=== PATIENT | female | born 1990 | race Caucasian/White ===

== ENCOUNTER → 2018-10-25 13:44 | Outpatient (CLI) | payer OTHER, SELFPAY ==
--- NOTE | 2018-10-25 | DI.US.S_ITS ---
PROCEDURE: US PELVIC COMPLETE INDICATIONS: ENLARGED OVARY TECHNIQUE: Real-time scanning was performed of the pelvic organs, with image documentation. Additional endovaginal scanning was necessary due to incomplete visualization of the adnexal and endometrial structures by transabdominal scanning. COMPARISON: None. FINDINGS: Transabdominal scanning: Limited scanning through the kidneys shows no hydronephrosis. No pathologic free abdominal or pelvic fluid. Endovaginal scanning: Uterus: Uterus is normal in size at 7.0 x 3.1 x 4.3 cm. The endometrium measures 3.2 mm in combined thickness. Ovaries: Right ovary is enlarged measuring 4.7 x 3.1 x 3.3 cm and there is an associated complex, thick and irregular walled cystic mass measuring 2.1 x 1.9 x 1.8 cm. Left ovary is normal measuring 3.6 x 1.9 x 2.8 cm. IMPRESSION: 1. Thick walled, complex mass associated with the right ovary likely a hemorrhagic ovarian cyst; however endometrioma could have a similar appearance. Recommend followup ultrasound in 6-12 weeks to assess for temporal resolution. Dictated by: Cristofer EUGENE Interpreted: Ritika Saba MD on 10/25/2018 at 14:28 Approved by: Ritika Saba M.D. on 10/25/2018 at 14:54
== END ==
PROVIDERS: PCP Emergency Medicine Emergency Medical Services; Visit Provider Emergency Medicine Emergency Medical Services
DX: N83.8 Other noninflammatory disorders of ovary, fallopian tube and broad ligament (principal); N83.9 Noninflammatory disorder of ovary, fallopian tube and broad ligament, unspecified
CPT/HCPCS: 76830; 76856

== ENCOUNTER → 2020-10-17 07:35 | Outpatient (CLI) | payer OTHER, SELFPAY ==
[2020-10-17 07:59] LABS: COVID19 -Nasal RAPID Negative (Negative)
== END ==
PROVIDERS: Visit Provider Physician Assistant
DX: R09.81 Nasal congestion (principal); Z20.822 Contact with and (suspected) exposure to COVID-19
CPT/HCPCS: 87635